=== PATIENT | female | born 1970 | race Caucasian/White ===

== ENCOUNTER 2018-09-27 13:11 | Emergency (ER) | payer MEDICAID ==
[~2018-09-27] VITALS: Ht 154.9 cm; Wt 89.1 kg
[2018-09-27] MEDS ORDERED: epiNEPHrine 1 mg/ml inj IM STA ×2 (13:17→13:48)
[2018-09-27] MEDS ORDERED: normal saline 1000ML IV soln IV ONE (13:20)
[2018-09-27] MEDS ORDERED: famotidine/PF 10 mg/ml inj IV ONE (13:20)
[2018-09-27] MEDS ORDERED: methylPREDNISolone sod succ 125mg/2ml vial IV ONE (13:20)
[2018-09-27] MEDS ORDERED: tranexamic acid 100mg/ml inj. IV ONE (13:20)
[2018-09-27] MEDS ORDERED: normal saline 1000ML IV soln IVB ONE (13:20)
[2018-09-27] MEDS ORDERED: racepinephrine 11.25mg/0.5ml nebule IH ONE (13:20)
--- NOTE | 2018-09-27 13:43 | NUR ---
pt receiving 1st liter NS, has had breathing tx, pt said she is starting to better "I just feel jittery", resp even and slightly labored, speaking 3-4 word sentences, skin p/w/d,
[2018-09-27 13:48] LABS: BASOPHILS # (AUTO) 0.1 X10'3 (0-0.2); BASOPHILS % (AUTO) 1.1 % (0-1); EOSINOPHILS # (AUTO) 0.1 X10'3 (0-0.9); EOSINOPHILS % (AUTO) 1.3 % (0-6); HEMATOCRIT 39.2 % (35.0-45.0); HEMOGLOBIN 13.4 g/dl (12.0-16.0); LYMPHOCYTES # (AUTO) 2.1 X10'3 (1.1-4.8); LYMPHOCYTES % (AUTO) 26.9 % (21-51); MEAN CORPUSCULAR HEMOGLOBIN 30.5 PG (27.0-31.0); MEAN CORPUSCULAR HGB CONC 34.2 g/dL (33.0-36.5); MEAN CORPUSCULAR VOLUME 89.2 FL (78-98); MEAN PLATELET VOLUME 7.6 FL (7.4-10.4); MONOCYTES # (AUTO) 0.5 X10'3 (0-0.9); MONOCYTES % (AUTO) 6.3 % (2-12); NEUTROPHILS # (AUTO) 5.1 X10'3 (1.8-7.7); NEUTROPHILS % (AUTO) 64.4 % (42-75); PLATELET COUNT 316 X10'3 (140-440); RED CELL DISTRIBUTION WIDTH 14.8 % (11.5-14.5); WHITE BLOOD COUNT 7.9 X10'3 (4.5-11.0)
[2018-09-27 14:01] LABS: ALANINE AMINOTRANSFERASE 39 U/L (12-78); ALBUMIN 3.3 G/DL (3.4-5.0); ALBUMIN/GLOBULIN RATIO 0.8 (1.1-1.5); ALKALINE PHOSPHATASE 63 IU/L (46-116); ANION GAP 9 (8-16); ASPARTATE AMINO TRANSFERASE 30 U/L (10-37); BILIRUBIN,TOTAL 0.5 MG/DL (0.1-1.0); BLOOD UREA NITROGEN 12 MG/DL (7-18); BUN/CREATININE RATIO 12.1 (6.6-38.0); CALCIUM 8.7 MG/DL (8.5-10.1); CHLORIDE 109 MMOL/L (99-107); CREATININE 0.99 MG/DL (0.40-0.90); GLUCOSE 115 MG/DL (70-104); POTASSIUM 3.7 MMOL/L (3.5-5.1); SODIUM 146 MMOL/L (135-145); TOTAL CARBON DIOXIDE 28.2 MMOL/L (24-32); TOTAL PROTEIN 7.5 G/DL (6.4-8.2); eGFR 60 ML/MIN
--- NOTE | 2018-09-27 14:09 | NUR ---
2nd liter NS infusing w/o, pt using bedpan
[2018-09-27] MEDS ORDERED: LORazepam 2 mg/ml vial IV ONE (14:15)
[2018-09-27] MEDS ORDERED: EPIN0.3P3 SQ (14:18)
--- NOTE | 2018-09-27 14:41 | NUR ---
3rd liter NS infusing, pt up to bedside commode without assist, gave pt ice chips, jus well, no n/v
[2018-09-27] MEDS ORDERED: diphenhydrAMINE 50 mg/ml inj IV ONE (14:50)
[2018-09-27 15:00] VITALS: BP 136/68
== END 2018-09-27 15:36 | disposition home or self-care (01) ==
LOC: ER 13:12
DX: T63.441A Toxic effect of venom of bees, accidental (unintentional), initial encounter (principal); R00.0 Tachycardia, unspecified; F41.9 Anxiety disorder, unspecified; L29.9 Pruritus, unspecified; Z88.0 Allergy status to penicillin; Z88.1 Allergy status to other antibiotic agents; Z88.8 Allergy status to other drugs, medicaments and biological substances; Y92.89 Other specified places as the place of occurrence of the external cause
CPT/HCPCS: 36415; 71045; 80053; 85025; 85610; 93005; 94640; 94760; 96372; 96374; 96375; 99291; J0171; J1200; J2060; J2930; J3490; J7030